=== PATIENT | male | born 1965 | race Caucasian/White ===

== ENCOUNTER 2017-08-23 10:49 | Emergency (ER) | payer OTHER ==
[~2017-08-23] VITALS: Ht 172.7 cm; Wt 71.6 kg
[2017-08-23 10:53] VITALS: Ht 172.7 cm; Wt 71.6 kg
[2017-08-23] MEDS ORDERED: SODIUM CHLORIDE 0.9% 1L BAG IV* STA (11:02)
[2017-08-23] MEDS ORDERED: VANCOMYCIN 1 GM (PMX) 250 ML IVPB STA (11:02)
[2017-08-23] MEDS ORDERED: PIPER-TAZO 3.375 GM IV (PMX) 100 ML IVPB STA (11:02)
[2017-08-23 11:32] LABS: BASOPHILS % 0.1 % (0.0-2.0); HEMOGLOBIN 11.5 g/dl (14.0-18.0); LYMPHOCYTES # 0.8 10^3/ul (0.8-2.9); LYMPHOCYTES % 3.6 % (15.0-51.0); MEAN CORPUSCULAR HEMOGLOBIN 29.3 pg (29.0-33.0); MEAN CORPUSCULAR HGB CONC 33.8 g/dl (32.0-37.0); MEAN CORPUSCULAR VOLUME 86.5 fl (82.0-101.0); MEAN PLATELET VOLUME 10.5 fl (7.4-10.4); MONOCYTE # 1.1 10^3/ul (0.3-0.9); MONOCYTES % 5.3 % (0.0-11.0); NEUTROPHIL # 18.7 10^3/ul (1.6-7.5); NEUTROPHILS % 89.6 % (39.0-77.0); PLATELET COUNT 252 10^3/UL (140-415); RED BLOOD COUNT 3.93 10^6/ul (4.70-6.10); RED CELL DISTRIBUTION WIDTH 12.8 % (11.5-14.5); WHITE BLOOD COUNT 20.9 10^3/ul (4.8-10.8)
[2017-08-23 11:50] LABS: ALANINE AMINOTRANSFERASE 44 IU/L (13-69); ALBUMIN 4.2 g/dl (3.3-4.9); ALBUMIN/GLOBULIN RATIO 0.95; ALKALINE PHOSPHATASE 194 IU/L (42-121); ANION GAP 19 (8-16); ASPARTATE AMINO TRANSFERASE 76 IU/L (15-46); BILIRUBIN,INDIRECT 0.6 mg/dl (0-1.1); BILIRUBIN,TOTAL 0.6 mg/dl (0.2-1.3); BLOOD UREA NITROGEN 40 mg/dl (7-20); CARBON DIOXIDE 24 mmol/L (21-31); CHLORIDE 92 mmol/L (97-110); CREATININE 1.63 mg/dl (0.61-1.24); INR 1.07; POTASSIUM 4.4 mmol/L (3.5-5.1); PROTIME 13.9 Sec (12.2-14.2); PT RATIO 1.1; SODIUM 131 mmol/L (135-144); TOTAL PROTEIN 8.6 g/dl (6.1-8.1)
[2017-08-23 11:51] LABS: PARTIAL THROMBOPLASTIN TIME 32.8 Sec (25.0-35.0)
[2017-08-23 12:00] LABS: GLUCOSE 669 mg/dl (70-220)
[2017-08-23 12:02] LABS: TROPONIN-I < 0.012 ng/ml (0.00-0.12)
--- NOTE | 2017-08-23 12:36 | RADRPT ---
PROCEDURE: XR Chest. CLINICAL INDICATION: Sepsis TECHNIQUE: AP view of the chest was obtained. COMPARISON: None. FINDINGS: The cardiomediastinal silhouette is within normal limits. The lungs are clear. No pleural effusion or pneumothorax is identified. Visualized osseous structures are intact. IMPRESSION: No evidence of active cardiopulmonary disease. RPTAT: VV .Filemon Snider MD, MD Date Time Electronically viewed and signed by .Filemon Snider MD, on 08/23/2017 12:35 .O/
[2017-08-23] MEDS ORDERED: INSULIN LISPRO 100 UNIT/ML VIAL SC STA (12:51)
[2017-08-23] MEDS ORDERED: morphine 4 MG/ML VIAL IV STA (12:58)
--- NOTE | 2017-08-23 13:16 | RADRPT ---
PROCEDURE: XR Right Foot. CLINICAL INDICATION: Right foot pain. TECHNIQUE: 3 views. Frontal, lateral, and oblique. COMPARISON: None. FINDINGS: There is no fracture or dislocation. There is gas in the soft tissues around the metatarsal heads. Vascular calcifications are present co nsistent with atherosclerosis. There is diffuse soft tissue swelling. Articular surfaces are intact. There is no lytic or blastic lesion. There is no radiopaque foreign body. IMPRESSION: 1. Gas in the soft tissues around the metatarsal heads suspicious for gangrene. 2. Atherosclerosis. 3. Diffuse soft tissue swelling. 4. No bone lytic lesion. RPTAT: QQ .Chuy De Leon MD, MD Date Time Electronically viewed and signed by .Chuy De Leon MD, on 08/23/2017 13:16 .R/
--- NOTE | 2017-08-23 13:24 | ERD ---
ER Documentation Chief Complaint Chief Complaint redness and swelling to right foot x 3 days, hx dm HPI Patient is a 52-year-old male with diabetes who presents with a right foot infection. He has diabetes. He thinks he got this from wearing sandals. It started 3 days ago and has gotten worse. He has fevers. He has had no treatment as of yet. He is not treating his diabetes either as he has no primary doctor. He has had diarrhea frequently. Upon review of old medical records this is the patient's first visit to the emergency department. ROS All systems reviewed and are negative except as per history of present illness. Medications Home Meds No Active Prescriptions or Reported Meds Allergies Allergies: Coded Allergies: No Known Allergy (Unverified , 08/23/17) PMhx/Soc Positive for diabetes Medical and Surgical Hx: pt denies Surgical Hx Hx Alcohol Use: No Hx Substance Use: No Hx Tobacco Use: No Smoking Status: Never smoker FmHx Family History: diabetes Physical Exam Vitals Vital Signs Date Time Temp Pulse Resp B/P Pulse Ox O2 Delivery O2 Flow Rate FiO2 08/23/17 10:53 98.6 105 18 98/54 96 Physical Exam Const: Moderate distress Head: Atraumatic Eyes: Normal Conjunctiva ENT: Normal External Ears, Nose and Mouth. Neck: Full range of motion..~ No meningismus. Resp: Clear to auscultation bilaterally Cardio: Regular rate and rhythm, no murmurs Abd: Soft, non tender, non distended. Normal bowel sounds Skin: Warmth and redness of the right foot without crepitus Back: No midline or flank tenderness Ext: No cyanosis, or edema Neur: Awake and alert Psych: Normal Mood and Affect Result Diagram: 08/23/17 1107 08/23/17 1107 Results 24 hrs Laboratory Tests Test 08/23/17 11:07 White Blood Count 20.910^3/ul Red Blood Count 3.9310^6/ul Hemoglobin 11.5g/dl Hematocrit 34.0% Mean Corpuscular Volume 86.5fl Mean Corpuscular Hemoglobin 29.3pg Mean Corpuscular Hemoglobin Concent 33.8g/dl Red Cell Distribution Width 12.8% Platelet Count 63643^3/UL Mean Platelet Volume 10.5fl Neutrophils % 89.6% Lymphocytes % 3.6% Monocytes % 5.3% Eosinophils % 0.0% Basophils % 0.1% Nucleated Red Blood Cells % 0.0/100WBC Neutrophils # 18.710^3/ul Lymphocytes # 0.810^3/ul Monocytes # 1.110^3/ul Eosinophils # 0.010^3/ul Basophils # 0.010^3/ul Nucleated Red Blood Cells # 0.010^3/ul Prothrombin Time 13.9Sec Prothrombin Time Ratio 1.1 INR International Normalized Ratio 1.07 Activated Partial Thromboplast Time 32.8Sec Sodium Level 131mmol/L Potassium Level 4.4mmol/L Chloride Level 92mmol/L Carbon Dioxide Level 24mmol/L Anion Gap 19 Blood Urea Nitrogen 40mg/dl Creatinine 1.63mg/dl Glucose Level 669mg/dl Lactic Acid Level 2.5mmol/L Calcium Level 9.0mg/dl Total Bilirubin 0.6mg/dl Direct Bilirubin 0.00mg/dl Indirect Bilirubin 0.6mg/dl Aspartate Amino Transf (AST/SGOT) 76IU/L Alanine Aminotransferase (ALT/SGPT) 44IU/L Alkaline Phosphatase 194IU/L Troponin I < 0.012ng/ml Total Protein 8.6g/dl Albumin 4.2g/dl Globulin 4.40g/dl Albumin/Globulin Ratio 0.95 Current Medications Medications (Trade) Dose Ordered Sig/Shekhar Route PRN Reason Start Time Stop Time Status Last Admin Dose Admin Sodium Chloride 2220 ml 2,220 ml BOLUS OVER 2 HOURS STAT IV* 08/23/17 11:02 08/23/17 11:03 DC 08/23/17 11:28 Vancomycin HCl 250 ml @ 125 mls/hr ONCE STAT IVPB 08/23/17 11:02 08/23/17 13:01 DC 08/23/17 11:02 Piperacillin Sod/ Tazobactam Sod (Zosyn 3.375gm/ 100 ml (Pmx)) 100 ml @ 100 mls/hr ONCE STAT IVPB 08/23/17 11:02 08/23/17 12:01 DC 08/23/17 11:27 Insulin Human Lispro (Humalog) 20 unit ONCE STAT SC 08/23/17 12:51 08/23/17 12:59 DC Morphine Sulfate (morphine) 4 mg ONCE STAT IV 08/23/17 12:58 10/26/17 12:59 DC 08/23/17 13:08 Procedures/MDM EKG read by me: Rate/Rhythm: Regular rate and rhythm at a normal rate Intervals: Normal Impression: No evidence of ischemia or arrhythmia PROCEDURE: XR Right Foot. CLINICAL INDICATION: Right foot pain. TECHNIQUE: 3 views. Frontal, lateral, and oblique. COMPARISON: None. FINDINGS: There is no fracture or dislocation. There is gas in the soft tissues around the metatarsal heads. Vascular calcifications are present consistent with atherosclerosis. There is diffuse soft tissue swelling. Articular surfaces are intact. There is no lytic or blastic lesion. There is no radiopaque foreign body. IMPRESSION: 1. Gas in the soft tissues around the metatarsal heads suspicious for gangrene. 2. Atherosclerosis. 3. Diffuse soft tissue swelling. 4. No bone lytic lesion. RPTAT: QQ .Chuy De Leon MD, MD Date Time Electronically viewed and signed by .Chuy De Leon MD, on 08/23/2017 13:16 Chest x-ray negative per radiology. Admit MDM: Patient's infectious symptoms have not stabilized and the patient is at risk of rapid decompensation. The patient will be admitted for careful hydration, antibiotic therapy, and infectious source control. Severe Sepsis criteria: Infectious source: Cellulitis with gangrene End organ damage indicated by: Lactate greater than 2 Sepsis Management: Time of recognition of sepsis: Upon arrival Within 3 hours of recognition: Blood cultures x 2 before broad-spectrum antibiotics: Yes 30 ml/kg NS bolus Completed Initial lactate 2.5 Repeat lactate pending Time of recognition of septic shock: No septic shock Septic Shock Assessment: Any lactic acid > 4.0 No Persistent hypotension (SBP < 90 or 40 mmHg drop, MAP < 65) despite 30 mL/kg IV fluid bolus No Volume Re-assessment for Septic Shock (post 30 ml/kg bolus): No septic shock at this time Persistent Hypotension Treatment: Comfort care No Central line Not Required Vasopressor started Not required I considered further perfusion assessment with CVP measurement, SCVO2, bedside ultrasound volume assessment, passive leg raise, trial of further fluid bolus. And proceeded with 30 ml/kg fluid bolus of NSS, broad spectrum antibiotics, and admission. The patient has cellulitis and gangrene but at this point I do not see any signs of necrotizing fasciitis. He was given broad-spectrum antibiotics but may require surgical consultation to determine if debridement is needed. Accepting Care Team Current data and ongoing care discussed. Admitting Physician: Patient will be transferred to the [facility] doctor given the patient's manager insurance(s): None Outstanding Data: Culture results and repeat lactic acid Critical Care: Critical care time 35 minutes excluding all billable procedures Emergent fluid management while maintaining close respiratory support. Provision of immediate and broad-spectrum antibiotic therapy. Simultaneous assessment for possible sources in order to direct targeted therapy. Consideration for invasive and chemical support to prevent cardiopulmonary collapse. Departure Diagnosis: Primary Impression: Severe sepsis Additional Impressions: Swelling Cellulitis Site of cellulitis: extremity Site of cellulitis of extremity: lower extremity Laterality: right Qualified Code: L03.115 - Cellulitis of right lower extremity Condition: ALVA Castillo MD Aug 23, 2017 13:24
[2017-08-23] MEDS ORDERED: CLINDAMYCIN 900 MG/D5W (PMX) 50 ML IVPB STA (14:03)
[2017-08-23 14:43] VITALS: BP 110/50; PULSE 79
[2017-08-23 16:02] LABS: ADD UMIC YES; UR ASCORBIC ACID NEGATIVE (NEGATIVE); UR BILIRUBIN (Dip) NEGATIVE (NEGATIVE); UR BLOOD (Dip) 1+ mg/dL (NEGATIVE); UR CLARITY CLEAR (CLEAR); UR COLOR YELLOW (YELLOW); UR GLUCOSE (Dip) 3+ mg/dL (NEGATIVE); UR KETONES (Dip) TRACE mg/dL (NEGATIVE); UR LEUKOCYTE ESTERASE (Dip) NEGATIVE Leu/ul (NEGATIVE); UR NITRITE (Dip) NEGATIVE (NEGATIVE); UR RBC 2 /HPF (0-5); UR SPECIFIC GRAVITY (Dip) 1.023 (1.003-1.030); UR TOTAL PROTEIN (Dip) 1+ mg/dl (NEGATIVE); UR UROBILINOGEN (Dip) NEGATIVE (NEGATIVE)
== END 2017-08-23 14:56 | disposition short-term general hospital (02) ==
LOC: E/R 10:49
DX: A41.9 Sepsis, unspecified organism (principal); R65.20 Severe sepsis without septic shock; L03.115 Cellulitis of right lower limb
CPT/HCPCS: 36415; 71010; 73630; 80053; 81001; 82962; 83605; 84484; 85025; 85610; 85730; 87040; 87086; 93005; 96372; 96374; 96375; 99291; J1815; J2270; J2543; J3370; J7030